=== PATIENT | male | born 1980 ===

== ENCOUNTER 2016-06-13 15:35 | Emergency (ER) | payer OTHER ==
[2016-06-13 15:45] VITALS: BP 116/64; PULSE 49; RESP 16; TEMP 98.1; O2SAT 100
--- NOTE | 2016-06-13 16:03 | ED PDOC ---
HPI: Chest Pain Time Seen by Provider: 06/13/16 15:55 Chief Complaint (Nursing): Chest Pain History Per: Patient (Left sided chest pain sharp, worse on inspiration and movement. Sxs x 1 month intermittent. Denies cough or fever.) Onset/Duration Of Symptoms: Other ( 1month) Current Symptoms Are (Timing): Intermittent Episodes Severity: Mild Pain Scale Rating Of: 2 Quality: Sharp Exacerbating Factors: Movement, Deep Breathing Past Medical History Vital Signs: Last Vital Signs Temp 98.1 F 06/13/16 15:43 Pulse 49 L 06/13/16 15:43 Resp 16 06/13/16 15:43 BP 116/64 06/13/16 15:43 Pulse Ox 100 06/13/16 16:03 - Medical History PMH: No Chronic Diseases - Family History Family History: States: Unknown Family Hx - Home Medications Home Medications: Ambulatory Orders Medication Instructions Recorded Naproxen [Naprosyn] 500 mg PO Q12H #20 tab 06/13/16 - Allergies Allergies/Adverse Reactions: Allergies Allergy/AdvReac Type Severity Reaction Status Date / Time No Known Allergies Allergy Verified 06/13/16 15:43 Review of Systems ROS Statement: Except As Marked, All Systems Reviewed And Found Negative Cardiovascular: Positive for: Chest Pain, Palpitations Physical Exam - Reviewed Nursing Documentation Reviewed: Yes Vital Signs Reviewed: Yes - Physical Exam Appears: Positive for: Non-toxic, No Acute Distress Head Exam: Positive for: ATRAUMATIC, NORMAL INSPECTION, NORMOCEPHALIC Skin: Positive for: Normal Color, Warm, DRY Eye Exam: Positive for: EOMI, Normal appearance, PERRL ENT: Positive for: Normal ENT Inspection Neck: Positive for: Normal, Painless ROM Cardiovascular/Chest: Positive for: Regular Rate, Rhythm Respiratory: Positive for: CNT, Normal Breath Sounds Gastrointestinal/Abdominal: Positive for: Normal Exam, Bowel Sounds, Soft Back: Positive for: Normal Inspection Extremity: Positive for: Normal ROM Neurologic/Psych: Positive for: Alert, Oriented - Laboratory Results Result Diagrams: 06/13/16 16:19 - ECG O2 Sat by Pulse Oximetry: 100 Disposition - Clinical Impression Clinical Impression: Palpitations, Anxiety, Pleuritic chest pain - Patient ED Disposition Is Patient to be Admitted: No Counseled Patient/Family Regarding: Studies Performed, Diagnosis, Need For Followup, Rx Given - Disposition Referrals: [facility] [Outside] Disposition: Routine/Home Disposition Time: 16:54 Condition: FAIR Prescriptions: Naproxen [Naprosyn] 500 mg PO Q12H #20 tab Instructions: Palpitations (ED), Pleurisy (ED), Noncardiac Chest Pain (ED)
[2016-06-13 16:39] LABS: ALB/GLOB RATIO 1.3 (1.0-2.1); ALKALINE PHOSPHATASE 53 U/L (38-126); ALT/SGPT 33 U/L (21-72); BILIRUBIN,TOTAL 0.6 mg/dl (0.2-1.3); BLOOD UREA NITROGEN 16 mg/dl (9-20); CALCIUM 9.1 mg/dL (8.4-10.2); CARBON DIOXIDE 26 mmol/L (22-30); CHLORIDE 102 mmol/L (98-107); GFR AFRICAN-AMERICAN > 60; GLUCOSE,RANDOM 120 mg/dL (75-110); POTASSIUM 3.7 MMOL/L (3.6-5.0); SODIUM 142 mmol/l (132-148); TOTAL PROTEIN 6.6 G/DL (6.3-8.2)
[2016-06-13 16:48] LABS: BASO # 0.1 K/uL (0.0-0.2); BASO % 0.8 % (0.0-2.0); EOS # 0.3 K/uL (0.0-0.7); EOS % 4.4 % (0.0-4.0); HEMATOCRIT 40.4 % (35.0-51.0); LYMPH # 2.4 K/uL (1.0-4.3); LYMPH % 38.1 % (20.0-40.0); MEAN CELL VOLUME 91.6 fl (80.0-94.0); MEAN CORPUSCULAR HEMOGLOBIN 30.2 pg (27.0-31.0); MEAN CORPUSCULAR HGB CONC 32.9 g/dL (33.0-37.0); MEAN PLATELET VOLUME 9.2 fl (7.2-11.7); MONO # 0.4 K/uL (0.0-0.8); MONO % 6.2 % (0.0-10.0); NEUT # 3.2 K/uL (1.8-7.0); NEUT % 50.5 % (50.0-75.0); NRBC % 0.1 % (0.0-0.0); RED CELL DISTRIBUTION WIDTH 12.8 % (11.5-14.5); WHITE BLOOD COUNT 6.4 K/uL (4.8-10.8)
[2016-06-13 17:03] LABS: AST/SGOT 32 U/L (17-59)
--- NOTE | 2016-06-13 17:16 | RAD ---
HISTORY: Cough. Portable upright study 16:32. COMPARISON: No prior. FINDINGS: LUNGS: No active pulmonary disease. PLEURA: No significant pleural effusion identified, no pneumothorax apparent. CARDIOVASCULAR: Normal. OSSEOUS STRUCTURES: No significant abnormalities. VISUALIZED UPPER ABDOMEN: Normal. OTHER FINDINGS: None. IMPRESSION: No active disease.
--- NOTE | 2016-06-14 11:39 | CARD ---
APPROVED REPORT EKG Measurement Heart [id number] <Conclusion> Sinus bradycardia Otherwise normal ECG
== END 2016-06-13 17:27 | disposition home or self-care (01) ==
LOC: H.ER 15:35
DX: R07.9 Chest pain, unspecified (principal); R00.2 Palpitations; R07.81 Pleurodynia; F41.9 Anxiety disorder, unspecified

== ENCOUNTER 2016-07-08 13:41 | Emergency (ER) | payer OTHER ==
[2016-07-08 13:56] VITALS: O2SAT 100
--- NOTE | 2016-07-08 14:18 | ED PDOC ---
HPI: Chest Pain Time Seen by Provider: 07/08/16 14:14 Chief Complaint (Nursing): Palpitations Chief Complaint (Provider): Chest Pain History Per: Patient History/Exam Limitations: no limitations Onset/Duration Of Symptoms: Days (1 month), Intermittent Episodes Current Symptoms Are (Timing): Still Present Severity: Moderate Associated Symptoms: Other (pruritic sensation in patient's throat, epigastric abdominal pain, and a dry cough) Additional Complaint(s): Romulo Harris is a 36 year old male, with a past medical history of gastritis, who presents to the emergency department for the evaluation of intermittent chest pain, that the patient has been experiencing for 1 month. Patient was examined in this emergency room for chest pain 1 month ago, had a chest x-ray and blood work taken, and was told that it came back negative without problems. A pruritic sensation in the patient's throat is reportedly persistent with his chest pain. Associated epigastric abdominal pain and a dry cough are currently present. Of note, patient reports intermittent right-sided inguinal and testicular pain that worsens with heavy lifting at work. He states that he was checked for these symptoms 2 years ago and told that he had a ball on his scrotum, inclusive of swelling that comes and goes. PMD: [facility] Past Medical History Reviewed: Historical Data, Nursing Documentation, Vital Signs Vital Signs: Last Vital Signs Temp 98.1 F 07/08/16 13:52 Pulse 42 L 07/08/16 14:42 Resp 18 07/08/16 13:52 BP 123/78 07/08/16 13:52 Pulse Ox 100 07/08/16 14:42 - Medical History PMH: Gastritis - Surgical History Surgical History: No Surg Hx - Family History Family History: States: No Known Family Hx - Social History Current smoker - smoking cessation education provided: No Ex-Smoker (has not smoked in the last 12 months): No Alcohol: None Drugs: Denies - Home Medications Home Medications: Ambulatory Orders Medication Instructions Recorded Naproxen [Naprosyn] 500 mg PO Q12H #20 tab 06/13/16 - Allergies Allergies/Adverse Reactions: Allergies Allergy/AdvReac Type Severity Reaction Status Date / Time No Known Allergies Allergy Verified 06/13/16 15:43 Review of Systems ROS Statement: Except As Marked, All Systems Reviewed And Found Negative ENT: Positive for: Other (pruritic sensation to patient's throat) Cardiovascular: Positive for: Chest Pain Respiratory: Positive for: Cough. Negative for: Hemoptysis, Sputum Gastrointestinal: Positive for: Abdominal Pain (epigastric) Genitourinary Male: Positive for: Other (right inguinal and testicular pain, inclusive of swelling that comes and goes) Physical Exam - Reviewed Nursing Documentation Reviewed: Yes Vital Signs Reviewed: Yes - Physical Exam Appears: Positive for: Well, Non-toxic, No Acute Distress Head Exam: Positive for: ATRAUMATIC, NORMOCEPHALIC Skin: Positive for: Normal Color, Warm, Dry Cardiovascular/Chest: Positive for: Regular Rate, Rhythm. Negative for: Murmur Respiratory: Positive for: Normal Breath Sounds. Negative for: Respiratory Distress Gastrointestinal/Abdominal: Positive for: Normal Exam, Soft. Negative for: Tenderness Extremity: Positive for: Normal ROM. Negative for: Tenderness, Swelling Neurologic/Psych: Positive for: Alert, Oriented - Laboratory Results Result Diagrams: 07/08/16 14:42 07/08/16 14:42 - ECG ECG Rhythm: Positive for: Normal QRS, Sinus Bradycardia. Negative for: ST/T Changes Rate: 42 O2 Sat by Pulse Oximetry: 100 (RA) Pulse Ox Interpretation: Normal Medical Decision Making Medical Decision Makin:14 Initial Impression: Chest and epigastric abdominal pain Differential Diagnoses include, but are not limited to, GERD, gastritis, less likely to be ACS. Initial Plan: * Chest X-Ray * EKG * CBC * CMP * Troponin I * Lipase * Reevaluation 14:25 Patient was referred for a followup for his inguinal hernia. 14:27 EKG results read at a rate of 42 w/ Sinus Bradycardia, Short [place] Interval, Normal QRS, and No ST/T Changes. Scribe Attestation: Documented by Rahat Henriquez, acting as a scribe for Bhanu Correa MD. Provider Scribe Attestation: All medical record entries made by the Scribe were at my direction and personally dictated by me. I have reviewed the chart and agree that the record accurately reflects my personal performance of the history, physical exam, medical decision making, and the department course for this patient. I have also personally directed, reviewed, and agree with the discharge instructions and disposition. Disposition - Clinical Impression Clinical Impression: Palpitations, Chest pain, Dyspepsia, Inguinal hernia - Patient ED Disposition Is Patient to be Admitted: No Doctor Will See Patient In The: Office Counseled Patient/Family Regarding: Studies Performed, Diagnosis, Need For Followup - Disposition Referrals: [facility] [Outside] Disposition: Routine/Home Disposition Time: 16:01 Condition: GOOD Additional Instructions: Return for worsening. Follow up with your PCP in 3 days. Follow up with wool dyer within 1 week. Follow up with a surgeon for your hernia as needed. Instructions: Gastroesophageal Reflux Disease (ED), Inguinal Hernia (ED)
[2016-07-08 14:46] LABS: BASO # 0.1 K/uL (0.0-0.2); BASO % 0.9 % (0.0-2.0); EOS # 0.2 K/uL (0.0-0.7); EOS % 2.6 % (0.0-4.0); HEMATOCRIT 45.2 % (35.0-51.0); LYMPH # 2.6 K/uL (1.0-4.3); LYMPH % 37.6 % (20.0-40.0); MEAN CORPUSCULAR HEMOGLOBIN 30.7 pg (27.0-31.0); MEAN CORPUSCULAR HGB CONC 33.3 g/dL (33.0-37.0); MEAN PLATELET VOLUME 9.3 fl (7.2-11.7); MONO # 0.5 K/uL (0.0-0.8); MONO % 6.8 % (0.0-10.0); NEUT # 3.7 K/uL (1.8-7.0); NEUT % 52.1 % (50.0-75.0); NRBC % 0.1 % (0.0-0.0); RED CELL DISTRIBUTION WIDTH 13.1 % (11.5-14.5); WHITE BLOOD COUNT 7.1 K/uL (4.8-10.8)
[2016-07-08 15:02] LABS: ALB/GLOB RATIO 1.5 (1.0-2.1); ALKALINE PHOSPHATASE 64 U/L (38-126); ALT/SGPT 34 U/L (21-72); AST/SGOT 23 U/L (17-59); BILIRUBIN,TOTAL 0.5 mg/dl (0.2-1.3); BLOOD UREA NITROGEN 12 mg/dl (9-20); CALCIUM 9.6 mg/dL (8.4-10.2); CARBON DIOXIDE 26 mmol/L (22-30); CHLORIDE 104 mmol/L (98-107); GFR AFRICAN-AMERICAN > 60; GLUCOSE,RANDOM 82 mg/dL (75-110); LIPASE 357 U/L (23-300); POTASSIUM 4.1 MMOL/L (3.6-5.0); SODIUM 141 mmol/l (132-148); TOTAL PROTEIN 7.6 G/DL (6.3-8.2)
--- NOTE | 2016-07-08 15:59 | RAD ---
HISTORY: chest pain COMPARISON: No prior. TECHNIQUE: Chest PA and lateral FINDINGS: LUNGS: No active pulmonary disease. PLEURA: No significant pleural effusion identified. No pneumothorax apparent. CARDIOVASCULAR: Normal. OSSEOUS STRUCTURES: No significant abnormalities. VISUALIZED UPPER ABDOMEN: Normal. OTHER FINDINGS: None. IMPRESSION: No active disease.
[2016-07-08 16:58] VITALS: BP 126/80; PULSE 51; RESP 16; TEMP 98
--- NOTE | 2016-07-10 09:21 | CARD ---
APPROVED REPORT EKG Measurement Heart [id number] OH 96P52 [id number] <Conclusion> Marked sinus bradycardia with short [place] Nonspecific intraventricular block Abnormal ECG
== END 2016-07-08 16:58 | disposition home or self-care (01) ==
LOC: H.ER 13:41
DX: R07.9 Chest pain, unspecified (principal); R00.2 Palpitations; K40.90 Unilateral inguinal hernia, without obstruction or gangrene, not specified as recurrent; R12 Heartburn; R10.13 Epigastric pain; R05 Cough; Z87.891 Personal history of nicotine dependence